=== PATIENT | female | born 1950 | race Caucasian/White ===

== ENCOUNTER 2016-05-22 19:13 | Emergency (ER) | payer OTHER ==
[~2016-05-22] VITALS: Ht 160 cm; Wt 68.9 kg
[~2016-05-22 19:13] MED LIST: ADULT LOW DOSE81 M1 PO; GLIPIZIDE5 M1 PO; GLUCOPHAGE500 M1 PO; HYDROCHLOROTH12.5 M1 PO; LIPITOR20 MG PO; VASOTEC20 MG PO
[2016-05-22 19:48] LABS: POINT-OF-CARE METER ID UU13113778; POINT-OF-CARE USER ID 515033160
[2016-05-22] MEDS ORDERED: PANTOPRAZOLE SO40 MG PO (19:49)
[2016-05-22] MEDS ORDERED: VITAMIN D32000 UNI1 PO (19:49)
[2016-05-22] MEDS ORDERED: METFORMIN HCL1000 MG PO (19:49)
[2016-05-22] MEDS ORDERED: DIOVAN HCT 11 TABLET PO (19:50)
[2016-05-22 20:02] LABS: ADD MIUA? YES; BILIRUBIN NEGATIVE; BLOOD SMALL; COLOR YELLOW ((YELLOW)); GLUCOSE (STRIP) NEGATIVE; KETONES NEGATIVE; LEUKOCYTES SMALL; NITRITE NEGATIVE; PH, URINE 5.5 (5-8); PROTEIN (STRIP) 30; SPECIFIC GRAVITY 1.023 (1.000-1.030); UROBILINOGEN 0.2 MG/DL (0.2-1.0)
[2016-05-22 20:05] LABS: HEMATOCRIT 39.6 % (36.0-46.0); MCH 29.8 PG (29.0-34.0); MCHC 35.4 G/DL (30.0-36.0); MCV 84.3 FL (83-99); MEAN PLAT.VOLUME 10.2 uM^3 (9.5-12.4); PLATELET COUNT 298 K/uL (156-360); RBC DIS.WIDTH-CV 12.4 % (11.8-14.6); RBC DIS.WIDTH-SD 37.6 % (39-53); WHITE BLOOD COUNT 10.3 K/uL (4.1-10.2)
[2016-05-22 20:16] LABS: RED BLOOD CELLS 0-5 /HPF (0-5)
[2016-05-22 20:17] LABS: CHLORIDE 94 mEq/L (99-109); POTASSIUM 3.6 mEq/L (3.7-5.4); SODIUM 132 mEq/L (136-147)
[2016-05-22 20:17] LABS: BACTERIA NONE SEEN; CASTS NONE SEEN /LPF; CRYSTALS NONE SEEN; EPITHELIAL CELLS 2+; MUCUS NONE SEEN; UCUL ADDED? NO
[2016-05-22 20:19] LABS: GLUCOSE 252 mg/dL (70-99)
[2016-05-22 20:20] LABS: ANION GAP 17 MEQ/L (2-14)
[2016-05-22 20:23] LABS: GFR ESTIMATE (CALCULATED) 37 mL/min/
[2016-05-22 20:24] LABS: UREA NITROGEN (BUN) 40 mg/dL (9-23)
[2016-05-22] MEDS ORDERED: GLUCOTROL5 MG PO (21:06)
[2016-05-22 21:21] VITALS: BP 135/66
== END 2016-05-22 21:23 | disposition home or self-care (01) ==
LOC: RME 19:13 → EME 19:13 → RME 21:23
DX: E11.65 Type 2 diabetes mellitus with hyperglycemia (principal); N28.9 Disorder of kidney and ureter, unspecified; R19.7 Diarrhea, unspecified; R51 Headache; I10 Essential (primary) hypertension; E78.5 Hyperlipidemia, unspecified; Z79.82 Long term (current) use of aspirin
CPT/HCPCS: 80048; 81003; 82948; 85027; 99281; 99284